=== PATIENT | male | born 1950 | race Caucasian/White ===

== ENCOUNTER 2017-10-28 17:58 | Inpatient (IN) | payer MEDICARE, BC ==
[~2017-10-28 17:58] MED LIST: ASPI81 PO; ATOR20TA42 PO; CARV25TA PO; COZA50TA PO; FEXO180T PO; FOLI1TAB PO; HCTZ50TA PO; KCL20 PO; MONT10TA2 PO; NIFE1TAB86 PO; NITR0.4S SL; OMEP20TA PO; PRAS10TA PO; PRAZ2 PO; VITA50TA PO; ZOLP10TA3 PO
[2017-10-28 18:04] VITALS: BP 182/73; PULSE 47; RESP 20; TEMP 98.4; O2SAT 98
[2017-10-28 18:14] VITALS: BP 141/63; PULSE 52; RESP 17; O2SAT 96
[2017-10-28] MEDS ORDERED: AMLO5TAB2 PO (18:23)
[2017-10-28] MEDS ORDERED: TRAZ100T10 PO (18:23)
[2017-10-28] MEDS ORDERED: PANT20TA2 PO (18:23)
[2017-10-28] MEDS ORDERED: PRAZ2CAP PO (18:23)
[2017-10-28] MEDS ORDERED: OLOP1DRO EACH EYE (18:23)
[2017-10-28] MEDS ORDERED: CLOP75TA PO (18:23)
[2017-10-28] MEDS ORDERED: XOLA150S SQ (18:23)
[2017-10-28] MEDS ORDERED: RANI150T PO (18:23)
[2017-10-28] MEDS ORDERED: LEFL1TAB3 PO (18:23)
[2017-10-28] MEDS ORDERED: CIAL5TAB PO (18:23)
[2017-10-28] MEDS ORDERED: FLUT50SP EACH NARE (18:23)
[2017-10-28] MEDS ORDERED: VALS320T6 PO (18:23)
[2017-10-28] MEDS ORDERED: ROSU1TAB4 PO (18:23)
[2017-10-28 18:39] VITALS: O2SAT 98
[2017-10-28] MEDS ORDERED: SODIUM CHLORIDE 0.9% FLUSH 10 ML FLUSH IVF PRN (18:45)
--- NOTE | 2017-10-28 18:49 | PD ---
HPI Chief Complaint: Cardiac Complaint Time Seen by Provider: 18:07 Travel History International Travel<30 days: No Contact w/Intl Traveler<30days: No Traveled to known affect area: No History of Present Illness HPI The patient is a 67-year-old male who presents to the emergency department from his vp scientific affairs's office, Dr. Anthony Gu, for admission for third-degree heart block. The patient is a 3-4 month history of increasing fatigue, exertional shortness of breath, and near syncope. The patient feels like there is a "lead vest "when he is doing anything exertional. The patient was seen in the vp scientific affairs's office earlier today and had an EKG which reveals a complete third-degree heart block. The patient does have a history of CAD with previous stent placement by his previous vp scientific affairs. The patient' s primary physician is located in [place], [place]. The patient was sent directly from the vp scientific affairs office for admission to the medical service, n.p.o. after midnight, pacemaker placement tomorrow. Upon arrival he is currently asymptomatic at rest. He denies any new chest pain, shortness, no nausea, vomiting, or abdominal pain. PFSH Past Medical History Arthritis: Yes Asthma: No Autoimmune Disease: No Blood Disorders: No Anxiety: No Depression: No Heart Rhythm Problems: No Cancer: No Cardiovascular Problems: Yes High Cholesterol: Yes Chemotherapy: No Chest Pain: No Congestive Heart Failure: No COPD: Yes Cerebrovascular Accident: No Diabetes: No Diminished Hearing: No Endocrine: No Gastrointestinal Disorders: No GERD: Yes Glaucoma: No Genitourinary: No Headaches: Yes Hepatitis: No Hiatal Hernia: No Hypertension: Yes Immune Disorder: No Kidney Stones: No Medical other: Yes (ARTHRITIS SHOULDERS) Musculoskeletal: Yes Neurologic: No Psychiatric: No Reproductive: No Respiratory: No (SLEEP APNEA) Integumentary: No Migraines: No Myocardial Infarction: No Radiation Therapy: No Renal Failure: No Seizures: No Sickle Cell Disease: No Sleep Apnea: Yes Thyroid Disease: No Ulcer: No Tetanus Vaccination: Unknown Influenza Vaccination: Yes ?: Not Past Surgical History Abdominal Surgery: Yes AICD: No Appendectomy: Yes (1998) Arteriovenous Shunt: No Cardiac Surgery: No Cholecystectomy: No Ear Surgery: No Endocrine Surgery: No Eye Surgery: No Genitourinary Surgery: No Gynecologic Surgery: No Insulin Pump: No Joint Replacement: No Oral Surgery: Yes (SINUS SX 2009) Pacemaker: No Thoracic Surgery: No Other Surgery: Yes Social History Alcohol Use: No (occ) Tobacco Use: No Substance Use: No Allergies-Medications (Allergen,Severity, Reaction): Coded Allergies: iodine (Unverified Allergy, Severe, 10/28/17) oyster extract (Unverified Allergy, Severe, 10/28/17) potassium iodide (Unverified Allergy, Severe, 10/28/17) povidone-iodine (Unverified Allergy, Severe, 10/28/17) sodium iodide (Unverified Allergy, Severe, 10/28/17) sodium iodide (Unverified Allergy, Severe, 10/28/17) tramadol (Unverified Allergy, Severe, 10/28/17) Mmaaizz-Nyw-Owr Reductase Inhibitor (Verified Allergy, Intermediate, hives , 10/28/17) Uncoded Allergies: BETA BLOCKERS (Adverse Reaction, Severe, Hypotension, 10/28/17) Reported Meds & Prescriptions Reported Meds & Active Scripts Active Reported Cialis (Tadalafil) 5 Mg Tab 5 Mg PO DAILY Do not exceed 1 dose/day. Trazodone (Trazodone HCl) 100 Mg Tablet 100 Mg PO HS Xolair Inj (Omalizumab) 150 Mg Vial 150 Mg SQ ONCE Valsartan-Hydrochlorothiazide 320-25 Mg Tab 1 Tab PO DAILY Rosuvastatin (Rosuvastatin Calcium) 5 Mg Tab 5 Mg PO DAILY Ranitidine (Ranitidine HCl) 150 Mg Tab 150 Mg PO BID Prazosin (Prazosin HCl) 2 Mg Cap 2 Mg PO BID [place]o Opth 0.7% (Olopatadine HCl) 0.7 % Drops 1 Drop EACH EYE DAILY Pantoprazole (Pantoprazole Sodium) 20 Mg Tab 20 Mg PO DAILY Leflunomide 20 Mg Tab 20 Mg PO DAILY Fluticasone Nasal [place] 50 Mcg/Act Naspr 50 Mcg EACH NARE BID 50 mcg/spray Clopidogrel (Clopidogrel Bisulfate) 75 Mg Tab 75 Mg PO DAILY Amlodipine (Amlodipine Besylate) 5 Mg Tab 5 Mg PO DAILY Review of Systems Except as stated in HPI: all other systems reviewed are Neg General / Constitutional: No: Fever HENT: Positive: Lightheadedness Cardiovascular: Positive: Syncope, Dyspnea on exertion, Other (Third-degree heart block) Gastrointestinal: No: Nausea, Vomiting, Abdominal Pain Musculoskeletal: Positive: Weakness Neurologic: Positive: Dizziness Physical Exam Narrative GENERAL: Awake, alert, pleasant 67-year-old male who appears his stated age and is in no acute respiratory distress. SKIN: Focused skin assessment warm/dry. HEAD: Atraumatic. Normocephalic. EYES: No injection or drainage. ENT: No nasal bleeding or discharge. Mucous membranes pink and moist. NECK: Trachea midline. No JVD. CARDIOVASCULAR: Regular, bradycardic with a heart rate in the 40s. RESPIRATORY: No accessory muscle use. Clear to auscultation. Breath sounds equal bilaterally. GASTROINTESTINAL: Abdomen soft, non-tender, nondistended. No rebound tenderness. MUSCULOSKELETAL: No obvious deformities. No clubbing. No cyanosis. No edema. NEUROLOGICAL: Awake and alert. No obvious cranial nerve deficits. Motor grossly within normal limits. Normal speech. Nonfocal. PSYCHIATRIC: Appropriate mood and affect; insight and judgment normal. Data Data Last Documented VS Vital Signs Date Time Temp Pulse Resp B/P (MAP) Pulse Ox O2 Delivery O2 Flow Rate FiO2 10/28/17 18:39 98 Room Air 10/28/17 18:14 52 17 10/28/17 18:04 98.4 Orders Orders Basic Metabolic Panel (Bmp) (10/28/17 18:36) Complete Blood Count With Diff (10/28/17 18:36) Magnesium (Mg) (10/28/17 18:36) Prothrombin Time / Inr (Pt) (10/28/17 18:36) Act Partial Throm Time (Ptt) (10/28/17 18:36) Ecg Monitoring (10/28/17 18:36) Iv Access Insert/Monitor (10/28/17 18:36) Oximetry (10/28/17 18:36) Oxygen Administration (10/28/17 18:36) Sodium Chloride 0.9% Flush (Ns Flush) (10/28/17 18:45) Chest, Pa & Lat (10/28/17 18:36) Admit Order (Ed Use Only) (10/28/17 18:49) Consult Cardiology (10/28/17 ) Admit To Inpatient (10/28/17 ) Vital Signs (Adult) Q4H (10/28/17 18:51) Activity Oob With Assistance (10/28/17 18:51) Cloth Examiner / Telemetry .CONTINUOUS (10/28/17 18:51) Sodium Chloride 0.9% Flush (Ns Flush) (10/28/17 19:00) Sodium Chloride 0.9% Flush (Ns Flush) (10/28/17 21:00) Naloxone Inj (Narcan Inj) (10/28/17 19:00) Inpatient Certification (10/28/17 ) ^ Other Nursing Orders (10/28/17 18:51) Labs Laboratory Tests Test 10/28/17 18:40 White Blood Count 7.3 TH/MM3 Red Blood Count 4.40 MIL/MM3 Hemoglobin 13.1 GM/DL Hematocrit 38.3 % Mean Corpuscular Volume 87.1 FL Mean Corpuscular Hemoglobin 29.8 PG Mean Corpuscular Hemoglobin Concent 34.2 % Red Cell Distribution Width 13.4 % Platelet Count 240 TH/MM3 Mean Platelet Volume 9.5 FL Neutrophils (%) (Auto) 51.9 % Lymphocytes (%) (Auto) 29.1 % Monocytes (%) (Auto) 17.0 % Eosinophils (%) (Auto) 1.3 % Basophils (%) (Auto) 0.7 % Neutrophils # (Auto) 3.8 TH/MM3 Lymphocytes # (Auto) 2.1 TH/MM3 Monocytes # (Auto) 1.2 TH/MM3 Eosinophils # (Auto) 0.1 TH/MM3 Basophils # (Auto) 0.1 TH/MM3 CBC Comment DIFF FINAL Differential Comment Prothrombin Time 10.9 SEC Prothromb Time International Ratio 1.1 RATIO Activated Partial Thromboplast Time 32.2 SEC Blood Urea Nitrogen 24 MG/DL Creatinine 1.14 MG/DL Random Glucose 88 MG/DL Calcium Level 8.6 MG/DL Magnesium Level 1.8 MG/DL Sodium Level 137 MEQ/L Potassium Level 3.3 MEQ/L Chloride Level 106 MEQ/L Carbon Dioxide Level 20.2 MEQ/L Anion Gap 11 MEQ/L Estimat Glomerular Filtration Rate 64 ML/MIN MDM Medical Decision Making Medical Screen Exam Complete: Yes Emergency Medical Condition: Yes Medical Record Reviewed: Yes Interpretation(s) EKG reveals third-degree heart block with a ventricular rate of 46. Nonspecific ST depression. Last Impressions Chest X-Ray 10/28/17 1702 Signed Impressions: Service Date/Time: Saturday, October 28, 2017 19:02 - CONCLUSION: 1. Extensive pleural and parenchymal scarring on the left side. No acute findings. London Brito MD Laboratory Tests Test 10/28/17 18:40 White Blood Count 7.3 TH/MM3 Red Blood Count 4.40 MIL/MM3 Hemoglobin 13.1 GM/DL Hematocrit 38.3 % Mean Corpuscular Volume 87.1 FL Mean Corpuscular Hemoglobin 29.8 PG Mean Corpuscular Hemoglobin Concent 34.2 % Red Cell Distribution Width 13.4 % Platelet Count 240 TH/MM3 Mean Platelet Volume 9.5 FL Neutrophils (%) (Auto) 51.9 % Lymphocytes (%) (Auto) 29.1 % Monocytes (%) (Auto) 17.0 % Eosinophils (%) (Auto) 1.3 % Basophils (%) (Auto) 0.7 % Neutrophils # (Auto) 3.8 TH/MM3 Lymphocytes # (Auto) 2.1 TH/MM3 Monocytes # (Auto) 1.2 TH/MM3 Eosinophils # (Auto) 0.1 TH/MM3 Basophils # (Auto) 0.1 TH/MM3 CBC Comment DIFF FINAL Differential Comment Prothrombin Time 10.9 SEC Prothromb Time International Ratio 1.1 RATIO Activated Partial Thromboplast Time 32.2 SEC Blood Urea Nitrogen 24 MG/DL Creatinine 1.14 MG/DL Random Glucose 88 MG/DL Calcium Level 8.6 MG/DL Magnesium Level 1.8 MG/DL Sodium Level 137 MEQ/L Potassium Level 3.3 MEQ/L Chloride Level 106 MEQ/L Carbon Dioxide Level 20.2 MEQ/L Anion Gap 11 MEQ/L Estimat Glomerular Filtration Rate 64 ML/MIN Differential Diagnosis Differential diagnosis includes third-degree heart block, arrhythmia, cardiomyopathy, aortic stenosis, deconditioning, ACS. Narrative Course IV was established, labs are drawn and sent, and the patient was placed on cardiac telemetry monitoring and continuous pulse oximetry monitoring. EKG was ordered and interpreted. Chest x-ray was obtained. I discussed the patient with Dr. Anthony Gu who agrees with admission to the medical service and n.p.o. after midnight. We will hold the Plavix. The patient will be admitted to the medical service. The patient will be admitted to a cardiac telemetry unit. Patient is comfortable with this plan of care. Physician Communication Physician Communication The on-call medical service was paged for admission. I discussed the patient with Dr. Bowens who agrees with admission. Diagnosis Primary Impression: Third degree heart block Additional Impression: Near syncope Admitting Information Admitting Physician Requests: Admit Condition: Stable Azam Quintero MD Oct 28, 2017 18:49
[2017-10-28] MEDS ORDERED: NALOXONE HCL 0.4 MG/ML AMP IV PUSH PRN (19:00)
[2017-10-28] MEDS ORDERED: SODIUM CHLORIDE 0.9% FLUSH 10 ML FLUSH IV FLUSH PRN (19:00)
[2017-10-28] MEDS ORDERED: SODIUM CHLOR 0.9% 1000 ML INJ 1,000 ML IV SCH (19:11)
[2017-10-28 19:14] LABS: AUTOMATED NEUTROPHIL # 3.8 TH/MM3 (1.8-7.7); BASOPHIL # 0.1 TH/MM3 (0-0.2); BASOPHIL % 0.7 % (0.0-2.0); EOSINOPHIL # 0.1 TH/MM3 (0-0.4); EOSINOPHIL % 1.3 % (0.0-4.0); HEMATOCRIT 38.3 % (39.0-51.0); HEMOGLOBIN 13.1 GM/DL (13.0-17.0); LYMPH % 29.1 % (9.0-44.0); LYMPHOCYTE # 2.1 TH/MM3 (1.0-4.8); MEAN CELL VOLUME 87.1 FL (80.0-100.0); MEAN CORPUSCULAR HEMOGLOBIN 29.8 PG (27.0-34.0); MEAN CORPUSCULAR HGB CONC 34.2 % (32.0-36.0); MEAN PLATELET VOLUME 9.5 FL (7.0-11.0); MONOCYTE # 1.2 TH/MM3 (0-0.9); NEUT % 51.9 % (16.0-70.0); PLATELET COUNT 240 TH/MM3 (150-450); RED CELL DISTRIBUTION WIDTH 13.4 % (11.6-17.2); WHITE BLOOD COUNT 7.3 TH/MM3 (4.0-11.0)
[2017-10-28] MEDS ORDERED: VANCOMYCIN INJ 1,000 MG in SODIUM CHLOR 0.9% 250 ML INJ 250 ML IV SCH (19:15)
[2017-10-28] MEDS ORDERED: ceFAZolin 2 GM PREMIX 100 ML IV SCH (19:15)
[2017-10-28] MEDS ORDERED: CHLORHEXIDINE GLUCONATE 2 % 1 PACK (2 CLOTHS) TOP SCH (19:15)
[2017-10-28] MEDS ORDERED: MUPIROCIN 2% OINT 1 APPLIC/GM SYR NASAL SCH (19:15)
--- NOTE | 2017-10-28 19:33 | RADRPT ---
EXAM DATE/TIME: 10/28/2017 19:02 [facility] COMPARISON: CHEST PA & LAT, October 13, 2011, 11:31. INDICATIONS : Patient presents with chest discomfort and history of cardiac stent. MEDICAL HISTORY : Cardiovascular disease. SURGICAL HISTORY : Coronary artery stent. ENCOUNTER: Initial ACUITY: 1 day PAIN SCORE: 5/10 LOCATION: Bilateral mid chest FINDINGS: PA and lateral views of the chest demonstrate a chronic left-sided pleural thickening and parenchymal scarring similar to 2012. Minimal right basilar scarring as well. No new infiltrate or new effusion. Heart size upper limits normal. CONCLUSION: 1. Extensive pleural and parenchymal scarring on the left side. No acute findings. London Brito MD on October 28, 2017 at 19:29 Board Certified Radiologist. This report was verified electronically.
[2017-10-28 19:35] VITALS: BP 129/59; PULSE 43; RESP 16; O2SAT 97
[2017-10-28 19:35] LABS: BICARBONATE 20.2 MEQ/L (21.0-32.0); CALCIUM 8.6 MG/DL (8.5-10.1); CREATININE 1.14 MG/DL (0.60-1.30); MAGNESIUM 1.8 MG/DL (1.5-2.5)
[2017-10-28 19:42] LABS: INTERNATIONAL NORMALIZED RATIO 1.1 RATIO; PROTHROMBIN TIME - PATIENT 10.9 SEC (9.8-11.6)
[2017-10-28] MEDS ORDERED: POTASSIUM CHLORIDE 20 MEQ CONTROLLED RELEASE TAB PO ONE (20:30)
--- NOTE | 2017-10-28 20:32 | HHI.HP ---
[facility] Unknown Admission Diagnosis Third-degree heart block, near syncope Diagnoses: Travel History International Travel<30 Days: No Contact w/Intl Traveler <30 Da: No Traveled to Known Affected Are: No History of Present Illness 67-year-old male with past medical history significant for hypertension, coronary artery disease, hyperlipidemia and peripheral vascular disease presents to the emergency department for the evaluation of dizziness and shortness of breath. The patient reports his symptoms have been going on for approximately one month. He denies any syncopal episodes. He went to see his jackscrew worker, Dr. Gu, who noted a third degree AV block which was new for the patient and sent him to the emergency department for admission and pacemaker placement tomorrow. The patient denies any chest pain. He denies any nausea/vomiting/diarrhea. No abdominal pain. No lateralizing signs/ symptoms. Review of Systems Except as stated in HPI: all other systems reviewed are Neg Past Family Social History Past Medical History Hypertension Coronary disease Hyperlipidemia Peripheral vascular disease Past Surgical History Cardiac catheterization with stent placement 1 in 2009 Left femoral-popliteal bypass Appendectomy Reported Medications Reported Meds & Active Scripts Active Reported Cialis (Tadalafil) 5 Mg Tab 5 Mg PO DAILY Do not exceed 1 dose/day. Trazodone (Trazodone HCl) 100 Mg Tablet 100 Mg PO HS Xolair Inj (Omalizumab) 150 Mg Vial 150 Mg SQ ONCE Valsartan-Hydrochlorothiazide 320-25 Mg Tab 1 Tab PO DAILY Rosuvastatin (Rosuvastatin Calcium) 5 Mg Tab 5 Mg PO DAILY Ranitidine (Ranitidine HCl) 150 Mg Tab 150 Mg PO BID Prazosin (Prazosin HCl) 2 Mg Cap 2 Mg PO BID Pazeo Opth 0.7% (Olopatadine HCl) 0.7 % Drops 1 Drop EACH EYE DAILY Pantoprazole (Pantoprazole Sodium) 20 Mg Tab 20 Mg PO DAILY Leflunomide 20 Mg Tab 20 Mg PO DAILY Fluticasone Nasal [place] 50 Mcg/Act Naspr 50 Mcg EACH NARE BID 50 mcg/spray Clopidogrel (Clopidogrel Bisulfate) 75 Mg Tab 75 Mg PO DAILY Amlodipine (Amlodipine Besylate) 5 Mg Tab 5 Mg PO DAILY Allergies: Coded Allergies: iodine (Unverified Allergy, Severe, 10/28/17) oyster extract (Unverified Allergy, Severe, 10/28/17) potassium iodide (Unverified Allergy, Severe, 10/28/17) povidone-iodine (Unverified Allergy, Severe, 10/28/17) sodium iodide (Unverified Allergy, Severe, 10/28/17) sodium iodide (Unverified Allergy, Severe, 10/28/17) tramadol (Unverified Allergy, Severe, 10/28/17) Yxytprj-Tzd-Tuf Reductase Inhibitor (Verified Allergy, Intermediate, hives , 10/28/17) Uncoded Allergies: BETA BLOCKERS (Adverse Reaction, Severe, Hypotension, 10/28/17) Family History Father with CAD Social History Quit tobacco 1-1/2 years ago. Occasional alcohol. Denies illicit drugs. Physical Exam Vital Signs Vital Signs Date Time Temp Pulse Resp B/P (MAP) Pulse Ox O2 Delivery O2 Flow Rate FiO2 10/28/17 19:35 43 16 129/59 (82) 97 Room Air 10/28/17 19:34 97 Room Air 10/28/17 18:39 98 Room Air 10/28/17 18:14 52 17 141/63 (89) 96 Room Air 10/28/17 18:09 16 97 10/28/17 18:04 98.4 47 20 182/73 (109) 98 Physical Exam GENERAL: male lying in bed SKIN: No rashes, ecchymoses or lesions. Cool and dry. HEAD: Atraumatic. Normocephalic. No temporal or scalp tenderness. EYES: Pupils equal round and reactive. Extraocular motions intact. No scleral icterus. No injection or drainage. ENT: Nose without bleeding, purulent drainage or septal hematoma. Throat without erythema, tonsillar hypertrophy or exudate. Uvula midline. Airway patent. NECK: Trachea midline. No JVD or lymphadenopathy. Supple, nontender, no meningeal signs. CARDIOVASCULAR: Regular rate and rhythm without murmurs, gallops, or rubs. RESPIRATORY: Clear to auscultation. Breath sounds equal bilaterally. No wheezes , rales, or rhonchi. GASTROINTESTINAL: Abdomen soft, non-tender, nondistended. No hepato-splenomegaly , or palpable masses. No guarding. MUSCULOSKELETAL: Extremities without clubbing, cyanosis, or edema. No joint tenderness, effusion, or edema noted. No calf tenderness. NEUROLOGICAL: Awake and alert. Cranial nerves II through XII intact. Motor and sensory grossly within normal limits. Normal speech. Laboratory Laboratory Tests Test 10/28/17 18:40 White Blood Count 7.3 Red Blood Count 4.40 Hemoglobin 13.1 Hematocrit 38.3 Mean Corpuscular Volume 87.1 Mean Corpuscular Hemoglobin 29.8 Mean Corpuscular Hemoglobin Concent 34.2 Red Cell Distribution Width 13.4 Platelet Count 240 Mean Platelet Volume 9.5 Neutrophils (%) (Auto) 51.9 Lymphocytes (%) (Auto) 29.1 Monocytes (%) (Auto) 17.0 Eosinophils (%) (Auto) 1.3 Basophils (%) (Auto) 0.7 Neutrophils # (Auto) 3.8 Lymphocytes # (Auto) 2.1 Monocytes # (Auto) 1.2 Eosinophils # (Auto) 0.1 Basophils # (Auto) 0.1 CBC Comment DIFF FINAL Differential Comment Prothrombin Time 10.9 Prothromb Time International Ratio 1.1 Activated Partial Thromboplast Time 32.2 Blood Urea Nitrogen 24 Creatinine 1.14 Random Glucose 88 Calcium Level 8.6 Magnesium Level 1.8 Sodium Level 137 Potassium Level 3.3 Chloride Level 106 Carbon Dioxide Level 20.2 Anion Gap 11 Estimat Glomerular Filtration Rate 64 Result Diagram: 10/28/17183910/28/171839 Caprini VTE Risk Assessment Caprini VTE Risk Assessment: Mod/High Risk (score >= 2) Caprini Risk Assessment Model Point Value = 1 Point Value = 2 Point Value = 3 Point Value = 5 Age 41-60 Minor surgery BMI > 25 kg/m2 Swollen legs Varicose veins or History of unexplained or recurrent spontaneous Oral contraceptives or hormone replacement Sepsis (< 1 month) Serious lung disease, including pneumonia (< 1 month) Abnormal pulmonary function Acute myocardial infarction Congestive heart failure (< 1 month) History of inflammatory bowel disease Medical patient at bed rest Age 61-74 Arthroscopic surgery Major open surgery (> 45 min) Laparoscopic surgery (> 45 min) Malignancy Confined to bed (> 72 hours) Immobilizing plaster cast Central venous access Age >= 75 History of VTE Family history of VTE Factor V Leiden Prothrombin [id number] Lupus anticoagulant Anticardiolipin antibodies Elevated serum homocysteine Heparin-induced thrombocytopenia Other congenital or acquired thrombophilia Stroke (< 1 month) Elective arthroplasty Hip, pelvis, or leg fracture Acute spinal cord injury (< 1 month) Prophylaxis Regimen Total Risk Factor Score Risk Level Prophylaxis Regimen 0-1 Low Early ambulation 2 Moderate Order ONE of the following: *Sequential Compression Device (SCD) *Heparin 5000 units SQ BID 3-4 Higher Order ONE of the following medications: *Heparin 5000 units SQ TID *Enoxaparin/Lovenox 40 mg SQ daily (WT < 150 kg, CrCl > 30 mL/min) *Enoxaparin/Lovenox 30 mg SQ daily (WT < 150 kg, CrCl > 10-29 mL/min) *Enoxaparin/Lovenox 30 mg SQ BID (WT < 150 kg, CrCl > 30 mL/min) AND/OR *Sequential Compression Device (SCD) 5 or more Highest Order ONE of the following medications: *Heparin 5000 units SQ TID (Preferred with Epidurals) *Enoxaparin/Lovenox 40 mg SQ daily (WT < 150 kg, CrCl > 30 mL/min) *Enoxaparin/Lovenox 30 mg SQ daily (WT < 150 kg, CrCl > 10-29 mL/min) *Enoxaparin/Lovenox 30 mg SQ BID (WT < 150 kg, CrCl > 30 mL/min) AND *Sequential Compression Device (SCD) Assessment and Plan Assessment and Plan Assessment/plan: 1. Third-degree AV block EKG shows third-degree AV block, personally reviewed Cardiology consulted, appreciate recommendations Anticipate pacemaker placement tomorrow Telemetry 2. Hypertension/hyperlipidemia Continue home medications 3. CAD/PVD Holding home Plavix in anticipation for procedure tomorrow 4. Hypokalemia Status post by mouth supplementation Follow-up BMP FEN NPO Electrolytes: As above NS at 100 cc/hr Holding pharmacologic anticoagulation in anticipation of pacemaker placement Physician Certification 2 Midnight Certification Type: Admission for Inpatient Services Order for Inpatient Services The services are ordered in accordance with Medicare regulations or non- Medicare payer requirements, as applicable. In the case of services not specified as inpatient-only, they are appropriately provided as inpatient services in accordance with the 2-midnight benchmark. Estimated LOS (days): 2 2 days is the estimated time the patient will need to remain in the hospital, assuming treatment plan goals are met and no additional complications. Post-Hospital Plan: Not yet determined Kim Cerrato MD Oct 28, 2017 20:32
[2017-10-28 22:35] VITALS: BP 111/53; PULSE 42; RESP 19; O2SAT 96
[2017-10-28] MEDS: SODIUM CHLORIDE 0.9% FLUSH 10 ML FLUSH IV FLUSH SCH (23:57)
[2017-10-28] MEDS: traZODone HCL 100 MG TAB PO SCH (23:57)
[2017-10-28] MEDS: PRAZOSIN HCL 2 MG CAP PO SCH (23:58)
[2017-10-29] VITALS (17 sets, daily range): BP systolic 115–154; BP diastolic 58–74; PULSE 36–89; RESP 16–20; TEMP 97.6–98.6; O2SAT 96–99
[2017-10-29] MEDS: SODIUM CHLOR 0.9% 1000 ML INJ 1,000 ML IV SCH ×3 (06:45→16:45)
[2017-10-29] MEDS ORDERED: ATORVASTATIN 10 MG TAB PO SCH (09:00)
[2017-10-29] MEDS ORDERED: PANTOPRAZOLE SOD 20 MG DELAYED RELEASE TAB PO SCH (09:00)
[2017-10-29] MEDS: SODIUM CHLORIDE 0.9% FLUSH 10 ML FLUSH IV FLUSH SCH ×2 (09:00→21:00)
[2017-10-29] MEDS ORDERED: HYDROCHLOROTHIAZIDE 25 MG TAB PO SCH (09:00)
[2017-10-29] MEDS ORDERED: VALSARTAN 160 MG TAB PO SCH (09:00)
[2017-10-29] MEDS ORDERED: amLODIPine BESYLATE 5 MG TAB PO SCH (09:00)
[2017-10-29] MEDS ORDERED: VANCOMYCIN 500 MG VIAL ONE (09:02)
[2017-10-29] MEDS ORDERED: LIDOCAINE HCL 2% 50 ML VIAL ONE (09:02)
[2017-10-29] MEDS ORDERED: VANCOMYCIN HCL 1000 MG VIAL ONE (09:08)
[2017-10-29] MEDS ORDERED: ceFAZolin INJ 1,000 MG VIAL ONE (09:09)
[2017-10-29] MEDS ORDERED: SODIUM CHLOR 0.9% 250 ML INJ 250 ML ONE (09:09)
[2017-10-29] MEDS ORDERED: MIDAZOLAM HCL 2 MG/2 ML VIAL ONE (09:09)
[2017-10-29] MEDS ORDERED: diphenhydrAMINE HCL 50 MG/ML VIAL ONE (09:40)
[2017-10-29] MEDS ORDERED: BACITRACIN OINT 0.9 GM PKT TOP PRN (11:00)
[2017-10-29] MEDS ORDERED: SODIUM CHLORIDE 0.9% FLUSH 10 ML FLUSH IV FLUSH PRN (11:00)
[2017-10-29] MEDS ORDERED: ACETAMINOPHEN 325 MG TAB PO PRN (11:00)
--- NOTE | 2017-10-29 11:20 | MP ---
cc: Anthony Gu MD DATE OF OPERATION: 10/29/2017 PREOPERATIVE DIAGNOSIS: Complete heart block. POSTOPERATIVE DIAGNOSIS: Complete heart block. PROCEDURE PERFORMED: Insertion of dual-chamber rate responsive pacemaker via the left subclavian vein. FINDINGS: Very difficult left subclavian access despite multiple attempts. Access was not easily achievable and a suspected pneumothorax resulted. Dr. Marks from Anesthesia assisted in the case, eventually achieving subclavian access for the case. DESCRIPTION OF THE PROCEDURE: The patient was brought to the cardiac catheterization lab in fasting state. The upper chest was prepped and draped in sterile fashion. Using 1% lidocaine for local anesthesia, an incision was made parallel to and below the left clavicle using Bovie for hemostasis. A pocket was fashioned above the pectoralis muscle. Next, I tried to puncture the left subclavian vein with a Cook needle. After several attempts, intravenous contrast was administered via the left brachial vein. Multiple attempts were then made to obtain access unsuccessfully and a second contrast injection for further delineation of the vein. After multiple frustrating attempts, Dr. Marks from Anesthesia was able to come by and assist me and he easily obtained access using a single access. A sheath was placed and 2 wires were inserted to allow insertion of both leads. Over the 1st guidewire, a 7-Georgian peel-away sheath was introduced. Through this, a ventricular lead was inserted and screwed into the right ventricular apex with good sensing and pacing thresholds. Over the 2nd guidewire, a 7-Georgian peel-away sheath was introduced and through this, the atrial lead was inserted and screwed into the right atrial appendage with good sensing and pacing threshold. Both leads were secured to the underlying fascia using three 2-0 silk sutures and the Silastic cuff. The leads were then connected to the pacemaker generator. The generator was then positioned in the floor of the pocket with the leads coiled behind it. The wound was irrigated with antibiotic solution. The wound was then carefully closed in layers using interrupted 2-0 Vicryl sutures for the deep fascial layers, interrupted 3-0 Vicryl sutures for the subcutaneous layers and a running 4-0 Monocryl stitch, followed by Steri-Strips and a 4 x 4 dressing. Note that both leads were tested with 10 volts with no diaphragmatic pacing. During the case, by fluoroscopy, the pleura is thickened creating false illusion of a pneumothorax. IMPLANT INFORMATION: The pacemaker is a Medtronic Advisa DR MRI model A2DR01, serial number [id number]. The atrial lead is a Medtronic model 4076, serial number [id number] with a P-wave of 4.3 millivolts, a threshold of 0.5 volts and impedance 456 ohms. The ventricular lead is Medtronic model 4076, serial number [id number] with an impedance of 627 ohms, a threshold of 0.5 volts and an R-wave during the case of 8.2 volts. The pacemaker was programmed DDDR at a rate of 60-130. ESTIMATED BLOOD LOSS: 10 mL. MD JAQUELINE Meraz/KATIE , 10:57 AM , 11:19 AM SAKSHI
--- NOTE | 2017-10-29 11:44 | CATHPROC ---
Patient Name: BRODERICK ESCOBAR Study #: [id number] Initial MD: Anthony Gu Date of : 1950 Study Date: 10/29/2017 Cardiac Catheterization Report 10/29/2017 11:44:20 AM Financial #: [id number] 1 of 10 Patient Name: BRODERICK ESCOBAR Study #: [id number] Initial MD: Anthony uG Date of : 1950 Study Date: 10/29/2017 Entire Case Report Patient Information Patient Name BRODERICK ESCOBAR Date of 1950 Age 67 years Financial # [id number] Gender M AlternateID Lab Number 6 Room Number 459 Height (in) 67.0 Height (cm) 170.2 BSA 2.18 Weight (lbs) 237.6 Weight (kg) 108.0 Patient Address/Phone Number Home Address [facility] Home Phone Number [phone] [facility] [phone] Study Information Study Number Admission Scheduled Start Study Start [id number] Oct 28 2017 6:52PM 10/28/2017 Oct 29 2017 7:34AM [place] [facility] Cardiac Pacer/ICD Admit Source Facility Department Other [facility] Operator Physician and Clinical Staff Initial Anthony Guallpa Abrasive Coating Machine Operator Rebeca Crowe,FILM VAULT SUPERVISOR TECH2 Abrasive Coating Machine Operator Kasandra Feliciano,PATRICE Other Anesthesia, HEATING ELEMENT BUILDER Recorder Elda Watts RN Scrub Uzma Jones RCIS Procedures Performed Procedure Location (Site) Vessel Name Lead Insertion Venogram Subclav. Vein (Lft Subclavian Vein 10/29/2017 11:44:20 AM Financial #: [id number] 2 of 10 Patient Name: BRODERICK ESCOBAR Study #: [id number] Initial MD: Anthony Gu Date of : 1950 Study Date: 10/29/2017 Equipment Time Discharge Door Operator Description Size Mfg Part Number Used/Scraped INTRODUCER SET, 10:20 [employer] FR 5 [id number] *[id number] Used MICROPUNCTURE STIFF [id number] 07:37 MEDLINE [employer] SUTURE, STRIP PLUS 1/2" * Used *[id number] 07:37 MEDLINE PACER ADHESIVE, MASTISOL 2/3CC 2/3CC 0523-48 Used 07:37 MEDLINE PACER EDWARD, LIMB * 2530 *[id number] Used [id number] 07:37 MEDLINE PACER PACK, PACER CUSTOM * Used *[id number] 07:37 MEDLINE PACER PEN, SKIN DUAL W/ RULER * Used *[id number] 09:17 [employer] PACER SAFE SHEATH, FR7, 13CM FR 7 [id number] Used 09:17 [employer] PACER SAFE SHEATH, FR7, 13CM FR 7 CLS-1007 Used 09:18 Needle Sponge Count 2 22 Used 09:18 Needle Sponge Count 3 3 Used 09:18 Needle Sponge Count 30 1 Used 10:35 Needle Sponge Count 4 4 Used 09:41 [employer] OMNIPAQUE, 300 MG, 50ML 50ML [id number] Used [id number] *[id number] SUTURE, 2-0 VICRYL [SH] ([id number]) SUTURE, 3-0 VICRYL [SH] ([id number]) SUTURE, 4-0 MONOCRYL [PS2] (Y496G) [id number] 07:37 [employer],WARM AIR CCL * Used *[id number] [facility] PAD, ELECTROSURGICAL 07:37 * [id number] *[id number] Used SURGICAL GROUNDING ORANGE LEAD, CAPSURE FIX NOVUS, 4076-52CM 10:13 [employer] 52CM Used 52CM *[id number] LEAD, CAPSURE FIX NOVUS, 4076-58CM 10:09 [employer] 58CM Used 58CM *[id number] PACEMAKER, ADVISA MRI 10:19 [employer] OEA-DDDR A2DR01 Used SURESCAN [id number] 07:37 [employer]GA. / * Used *57644 Equipment Model, Serial, Lot Number and Expiration Data Description Model Number Serial Number Lot Number Expiration Date INTRODUCER SET, [id number] 09-08-2020 MICROPUNCTURE STIFF LEAD, CAPSURE FIX NOVUS, 52CM 4076-52 [id number] 05-13-2019 LEAD, CAPSURE FIX NOVUS, 58CM 4076-58 [id number] 03-19-2018 PACEMAKER, ADVISKelley BERNABE MRI [id number] 12-14-2018 SURESUZY 10/29/2017 11:44:20 AM Financial #: [id number] 3 10 Patient Name: BRODERICK ESCOBAR Study #: [id number] Initial MD: Anthony Gu Date of : 1950 Study Date: 10/29/2017 Insurance Information Insurance Payor Private Health Insurance Third Democrat Third Democrat Number [facility] ACCTS History: Allergies Allergy Reaction Uwtkphi-Xmj-Lvt Reductase hives Inhibitor potassium iodide sodium iodide iodine povidone-iodine tramadol oyster extract BETA BLOCKERS Hypotension History: Risk Factors Hypertension Dyslipidemia Yes Yes Prior PCI Prior PCIDate Yes 07/20/2009 Labs Hgb (g/dl) Hct (%) RBC (MIL/MM3) WBC (l/cumm) Platelets (thousands) 11.60-17.00 35.00-51.00 4.00-5.90 4.00-11.00 150.00-450.00 13.0 38 4.4 7.3 240 Glucose (mg/dl) BUN (mg/dl) Creatinine (mg/dl) BUN:Creatinine (1:x) 74.00-106.00 7.00-18.00 0.50-1.30 10.00-20.00 88 24 1.1 21.8 Na (meq/l) K (meq/l) 136.00-145.00 3.50-5.10 137 3.3 INR (PTT:PT) 0.90-1.10 1.1 10/29/2017 11:44:20 AM Financial #: [id number] Patient Name: BRODERICK ESCOBAR Study #: [id number] Initial MD: Anthony Gu Date of : 1950 Study Date: 10/29/2017 Medication Medication Total Dose (Bolus/Oral) Medication Total Dosage/Unit 2% XYLOCAINE 100 mL Medications (Bolus/Oral) Medication Time Given Dosage/Unit Administered By Reason 2% XYLOCAINE 10/29/2017 9:31:00 AM 50 mL Anthony Gu 50 mL 2% XYLOCAINE given in lab by Anthony Gu in Left upper chest via Subcutaneous. 2% XYLOCAINE 10/29/2017 11:21:28 AM 50 mL 50 mL 2% XYLOCAINE given in lab in Left Lateral Chest via Subcutaneous by Dr Lara Medication (Drip) Medication Time Given Dosage/Unit Concentration/Unit Diluent (ml) Solution ANCEF 10/29/2017 9:20:00 AM 2 g 2 g ANCEF given in lab by Anesthesia, HEATING ELEMENT BUILDER via Peripheral IV. Ordered by Anthony Gu. Reason: As pe r physicians verbal order. VANCOMYCIN DRIP 10/29/2017 9:19:00 AM 1 g 1 g VANCOMYCIN DRIP given in lab by Anesthesia, HEATING ELEMENT BUILDER via Peripheral IV. Ordered by Anthony Gu. Encinal son: As per physicians verbal order. 10/29/2017 11:44:20 AM Financial #: [id number] 5 of 10 Patient Name: BRODERICK ESCOBAR Study #: [id number] Initial MD: Anthony Gu Date of : 1950 Study Date: 10/29/2017 Initial Case Assessment Cardiovascular HR Rhythm NIBP Chest Pain 46 chb 154/70 0 Edema Present Skin color Skin None Normal Warm Dry Circulatory - Right Pulses Radial 1 Scale (0,1,2,3,4,d) Circulatory - Left Pulses Radial 1 Scale (0,1,2,3,4,d) Circulatory - Lower Extremities Color Lower Right Color Lower Left Normal Normal Neurological State Oriented to time-place- Alert Moves all extremities person Respiration - General Respiration Rate SpO2 (%) (B/min) 18 96 10/29/2017 11:44:20 AM Financial #: [id number] 6 of 10 Patient Name: BRODERICK ESCOBAR Study #: [id number] Initial MD: Anthony Gu Date of : 1950 Study Date: 10/29/2017 Final Case Assessment Cardiovascular HR Rhythm NIBP Chest Pain 74 cumulative effects analyst 129/62 0 Edema Present Skin color Skin None Normal Warm Dry Circulatory - Right Pulses Radial 1 Scale (0,1,2,3,4,d) Circulatory - Left Pulses Radial 1 Scale (0,1,2,3,4,d) Circulatory - Lower Extremities Color Lower Right Color Lower Left Normal Normal Neurological State Lethargic Moves all extremities Respiration - General Respiration Rate SpO2 (%) O2 (lpm) (B/min) 16 97 6 Chronological Log Time Study Chronological Log 8:50:00 Patient arrived via Bed. 8:50:06 Disposable Defibrillator Pads Placed On Patient. 8:50:09 A # 18 IV was noted in the Antecubital (left). Grade = 0 0.9ns kvo 8:50:10 A # 20 IV was noted in the Forearm (right). Grade = 0 0.9ns kvo 8:50:10 Patient Name, D.O.B, / Armband Verified By R.N. 8:50:20 Consent signed by the physician and the patient and verified by the [facility] staff. 8:50:42 Verbal Stimulation=2 Physical Stimulation=2 Airway=2 Respiration=2 TOTAL=8. (0=absent, 1=li mited, 2=present) 8:50:45 Patient has been NPO for More than 6Hrs. 8:50:51 Skin Breakdown- none per pt 10/29/2017 11:44:20 AM Financial #: [id number] Patient Name: BRODERICK ESCOBAR Study #: [id number] Initial MD: Anthony Gu Date of : 1950 Study Date: 10/29/2017 8:51:00 Pre-op and post- op instructions given; patient acknowledges understanding of instructions. 8:51:01 Patient Warmer Placed on the Table. 8:51:13 Brandy Prominences Protected 8:58:57 Reference ECG taken 8:59:00 Anesthesia at bedside. Assumes care of patient. Gokul Assessment: Initial Case, HR=46 BPM, Rhythm=chb, UOPY=697/70 mmhg, Chest Pain=0, Edema=None, Color=Normal, Skin = Warm, Dry Right Pulses: Radial=1 Left Pulses: Radial=1 8:59:02 Lower Right Extremities: Color=Normal Lower Left Extremities: Color=Normal Neurological: State=Alert, Ox3, SIMON Respiration: Resp=18 B/min, SpO2=96 % 9:00:00 Bovie ground pad applied to: right thigh 9:01:44 Table restraints applied according to hospital policy 9:02:31 History and physical on the chart or being dictated. 9:02:39 Upper Chest Prepped Times Two. 9:03:07 2% CHLORHEXIDINE GLUCONATE WASH AND NASAL SWIPE DONE PRIOR TO PROCEDURE. 9:11:40 Anesthesiologist present First Sponge And Instrument Count Done by Uzma Jones RCIS. 9:12:18 Hypo's: 3, Sponges: 40 sponges, Bovie/scratch: 2 Sutures: 5, Blades: 2, Instruments: 26, Syveck Patches: 0 Verified w SH 1 g VANCOMYCIN DRIP given in lab by Anesthesia, HEATING ELEMENT BUILDER via Peripheral IV. Ordered by Sushila Gu. Reason: As per 9:19:00 physicians verbal order. 2 g ANCEF given in lab by Anesthesia, HEATING ELEMENT BUILDER via Peripheral IV. Ordered by Anthony Gu. Reason: As per physicians 9:20:00 verbal order. 9:25:47 MD arrived. Time Out. Correct patient, procedure, procedure equipment, site and side verified with physicia n present. Time 9:30:00 concurred by MD, individual staff and HEATING ELEMENT BUILDER. Time Out #2 - Consents verified, patient in correct position, all results are labled and displa yed, safety precautions 9:30:16 taken, antibiotics administered. Time out concurred by MD, individual staff and HEATING ELEMENT BUILDER in procedu re 9:30:49 Case Start 9:31:00 50 mL 2% XYLOCAINE given in lab by Anthony Gu in Left upper chest via Subcutaneous. 9:32:19 Surgical Incision Made. 9:37:18 A pocket was created at the L Upper Chest. 9:42:01 The Subclav. Vein (Lft was manually injected with 10 cc's of contrast. OMNIPAQUE, 300 MG, 5 0ML 50ML used. 9:47:00 The Subclav. Vein (Lft was manually injected with 10 cc's of contrast. OMNIPAQUE, 300 MG, 5 0ML 50ML used. 9:56:14 The Subclav. Vein (Lft was manually injected with 10 cc's of contrast. OMNIPAQUE, 300 MG, 5 0ML 50ML used. 10:03:14 Anesthesiologist present to assist w access. 10:05:02 Vascular access was obtained in the Subclav. Vein Lft. Dr Marks 10:05:03 Wire inserted 10:06:03 Vascular access was obtained in the Subclav. Vein (Lft. 10/29/2017 11:44:20 AM Financial #: [id number] 8 of 10 Patient Name: BRODERICK ESCOBAR Study #: [id number] Initial MD: Anthony Gu Date of : 1950 Study Date: 10/29/2017 10:06:08 Wire inserted 10:07:57 A SAFE SHEATH, FR7, 13CM FR 7 was advanced into the Subclav. Vein (Lft using the Cutdown te chnique. 10:08:12 A LEAD, CAPSURE FIX NOVUS, 58CM 58CM was inserted and positioned in the RV. 10:09:39 Lead placement verified under fluoroscopy 10:10:53 The RV lead impedance and threshold being tested. 10:14:07 The RV lead was sutured to the fascia. 10:14:12 A SAFE SHEATH, FR7, 13CM FR 7 was advanced into the Subclav. Vein (Lft using the Modified S eldinger technique. 10:14:23 A LEAD, CAPSURE FIX NOVUS, 52CM 52CM was inserted and positioned in the RA. 10:16:23 Lead placement verified under fluoroscopy 10:16:25 The Atrial lead impedance and threshold is being tested. 10:16:48 The Atrial lead was sutured to the fascia. 10:27:15 A PACEMAKER, RONDA HOLDENAN OEA-DDDR was connected and placed in the pocket. 10:30:00 Pocket flushed with antibiotic solution Second Sponge And Instrument Count Done by Uzma Jones RCIS. 10:32:40 Hypo's: 4, Sponges: 40 sponges, Bovie/scratch: 2 Sutures: 5, Blades: 2, Instruments: 26, Syveck Patches: 0 Verified w SH 10:39:[address] Gu's request. Spoke fabian Sabillon. Will call before head to IR. 10:47:05 The pocket was closed. Final Sponge And Instrument Count Done by Uzma Jones RCIS. 10:48:21 Hypo's: 4, Sponges: 40 sponges, Bovie/scratch: 2 Sutures: 5, Blades: 2, Instruments: 26, Syveck Patches: 0 Verified w SH 10:49:18 Implant Procedure was performed. 10:58:06 A PPM Implant . (Dual) Spoke fabian Abad from IR et per Dr Gu's request asked if IR Could do CT placement in EP L ab. IR staff et Dr Lara 10:58:50 will come do procedure in EP Lab. 10:59:18 Steri-strips and a sterile dressing applied to site. 10:59:27 PACU called. Spoke to Starr 10:59:40 Bedside Report will be given. 11:02:24 Dr Gu went to speak w in waiting room et obtain consent for Chest Tube placement. 11:06:32 Anesthesia remains at bedside. Assuming care of patient. 11:13:08 Dr Lara et IR team present to insert CT. Consent obtained from . 11:14:35 Pt examined under fluoro, site signed and prepped for procedure by Dr Lara. 11:14:53 Left Lateral Upper Chest Prepped Times Two. Time Out. Correct patient, procedure, procedure equipment, site and side verified with physicia n present. Time 11:18:11 concurred by MD, individual staff and HEATING ELEMENT BUILDER. Time Out #2 - Consents verified, patient in correct position, all results are labled and displa yed, safety precautions 11:18:35 taken, antibiotics administered. Time out concurred by MD, individual staff and HEATING ELEMENT BUILDER in procedu re 11:18:55 Case Start 11:21:28 50 mL 2% XYLOCAINE given in lab in Left Lateral Chest via Subcutaneous by Dr Lara 11:23:19 Needle placement guided under fluoroscopy. 11:25:36 Wire inserted 10/29/2017 11:44:20 AM Financial #: [id number] Patient Name: BRODERICK ESCOBAR Study #: [id number] Initial MD: Anthony Gu Date of : 1950 Study Date: 10/29/2017 11:34:43 Wedge placed under pt right side. 11:35:15 Entire procedure done by Dr Lara using fluoro. Yet unable to place CT. 11:40:51 Steri-strips and a sterile dressing applied to site. 11:41:18 PACU called. Spoke to Starr. 11:41:48 Bedside Report will be given. 11:42:00 Case End 11:42:26 Cine recording checked. 11:42:30 Defibrillator and ground pads removed. Skin intact. Assessment: Final Case, HR=74 BPM, Rhythm=cumulative effects analyst, MRVK=330/62 mmhg, Chest Pain=0, Edema=None, Col or=Normal, Skin = Warm, Dry Right Pulses: Radial=1 Left Pulses: Radial=1 11:42:43 Lower Right Extremities: Color=Normal Lower Left Extremities: Color=Normal Neurological: State=Lethargic, SIMON Respiration: Resp=16 B/min, SpO2=97 %, O2=6 lpm 11:43:34 Implantable Device card placed in patient's chart. 11:43:38 A sling was placed on the affected arm. End Study - Contrast Media Used In Study Contrast Total Opened (mL) Total Used (mL) Total Wasted (mL) Omnipaque 50 30 20 End Study - Maximum Contrast Load Max Contrast Load (mL) 490.9 End Study - Radiation Exposure Fluoro Time (minutes) 16.4 End Study - Patient Disposition Complications Transferred To Interventional Outcome No Telemetry Bed successful 10/29/2017 11:44:20 AM Financial #: [id number]
[2017-10-29] MEDS ORDERED: oxyCODONE/ACETAMINOPHEN 5 MG/325 MG TAB PO PRN (12:00)
[2017-10-29] MEDS ORDERED: ePHEDrine/NS 25 MG/5 ML SYRINGE IV ONE (12:00)
[2017-10-29] MEDS ORDERED: ONDANSETRON HCL 4 MG/2 ML VIAL IV ONE (12:00)
[2017-10-29] MEDS ORDERED: DEXAMETHASONE SOD PHOS 4 MG/ML VIAL IV ONE (12:00)
[2017-10-29] MEDS ORDERED: PROPOFOL 200 MG/20 ML AMP IV ONE (12:00)
[2017-10-29] MEDS ORDERED: LIDOCAINE HCL 1% PF 5 ML SYRINGE OTHER ONE (12:00)
[2017-10-29] MEDS ORDERED: DO NOT ADM ANY ANTICOAGULANT DRUGS PRN (12:30)
--- NOTE | 2017-10-29 13:11 | RADRPT ---
EXAM DATE/TIME: 10/29/2017 12:42 [place] COMPARISON: CHEST PA & LAT, October 13, 2011, 11:31. CHEST PA & LAT, October 28, 2017, 19:02. INDICATIONS : Pneumothorax MEDICAL HISTORY : Cardiovascular disease. SURGICAL HISTORY : Hypertension ENCOUNTER: Subsequent ACUITY: 4 - 6 days PAIN SCORE: 0/10 LOCATION: Left chest FINDINGS: Portable upright expiratory view of the chest demonstrates a normal-sized cardiac silhouette. Left ch est wall cardiac pacing device is present. No pneumothorax is visualized. There is a chronic pleural- based opacity on the left. There is stable linear scar in the left upper lung zone. No pleural effusi on or consolidation is seen. Bones demonstrate no acute finding. CONCLUSION: 1. No pneumothorax is visualized. 2. Chronic left pleural thickening is stable. Shankar Velasquez MD on October 29, 2017 at 13:05 Board Certified Radiologist. This report was verified electronically.
--- NOTE | 2017-10-29 13:21 | HHI.PR ---
Subjective Remarks 67-year-old male with past medical history significant for hypertension, coronary artery disease, hyperlipidemia and peripheral vascular disease presents to the emergency department for the evaluation of dizziness and shortness of breath. The patient reports his symptoms have been going on for approximately one month. He denies any syncopal episodes. He went to see his measurement and sensing technician, Dr. Gu, who noted a third degree AV block which was new for the patient and sent him to the emergency department for admission and pacemaker placement tomorrow. The patient denies any chest pain. He denies any nausea/vomiting/diarrhea. No abdominal pain. No lateralizing signs/ symptoms. 4-12 SP PPM INSERTION AND SMALL PTX DW RN AND PT AND FAMILY CONTINUE OXYGEN INCENTIVE SPIROMETRY CHEST XRAY AND AM LABS Objective Vitals Vital Signs Date Time Temp Pulse Resp B/P (MAP) Pulse Ox O2 Delivery O2 Flow Rate FiO2 10/29/17 12:45 70 16 125/61 (82) 98 Nasal Cannula 2 10/29/17 12:30 68 16 131/61 (84) 98 Nasal Cannula 2 10/29/17 12:15 68 16 136/63 (87) 98 Nasal Cannula 2 10/29/17 12:00 70 16 137/64 (88) 98 Nasal Cannula 2 10/29/17 11:58 98.4 70 16 136/63 (87) 99 Nasal Cannula 2 10/29/17 07:45 98.6 40 20 115/60 (78) 98 10/29/17 07:00 36 10/29/17 03:00 40 10/29/17 02:33 98.6 44 16 124/58 (80) 97 10/29/17 02:00 45 10/29/17 01:47 10/28/17 22:35 42 19 111/53 (72) 96 Room Air 10/28/17 19:35 43 16 129/59 (82) 97 Room Air 10/28/17 19:34 97 Room Air 10/28/17 18:39 98 Room Air 10/28/17 18:14 52 17 141/63 (89) 96 Room Air 10/28/17 18:09 16 97 10/28/17 18:04 98.4 47 20 182/73 (109) 98 I/O 10/28/17 10/28/17 10/28/17 10/29/17 10/29/17 10/29/17 07:00 15:00 23:00 07:00 15:00 23:00 Intake Total 0 ml 20 ml Balance 0 ml 20 ml Intake Oral 0 ml IV Total 20 ml # Voids 2 # Bowel Movements 2 Result Diagram: 10/28/170 10/28/17 1840 Other Results Laboratory Tests Test 10/28/17 18:40 White Blood Count 7.3 TH/MM3 Red Blood Count 4.40 MIL/MM3 Hemoglobin 13.1 GM/DL Hematocrit 38.3 % Mean Corpuscular Volume 87.1 FL Mean Corpuscular Hemoglobin 29.8 PG Mean Corpuscular Hemoglobin Concent 34.2 % Red Cell Distribution Width 13.4 % Platelet Count 240 TH/MM3 Mean Platelet Volume 9.5 FL Neutrophils (%) (Auto) 51.9 % Lymphocytes (%) (Auto) 29.1 % Monocytes (%) (Auto) 17.0 % Eosinophils (%) (Auto) 1.3 % Basophils (%) (Auto) 0.7 % Neutrophils # (Auto) 3.8 TH/MM3 Lymphocytes # (Auto) 2.1 TH/MM3 Monocytes # (Auto) 1.2 TH/MM3 Eosinophils # (Auto) 0.1 TH/MM3 Basophils # (Auto) 0.1 TH/MM3 CBC Comment DIFF FINAL Differential Comment Prothrombin Time 10.9 SEC Prothromb Time International Ratio 1.1 RATIO Activated Partial Thromboplast Time 32.2 SEC Blood Urea Nitrogen 24 MG/DL Creatinine 1.14 MG/DL Random Glucose 88 MG/DL Calcium Level 8.6 MG/DL Magnesium Level 1.8 MG/DL Sodium Level 137 MEQ/L Potassium Level 3.3 MEQ/L Chloride Level 106 MEQ/L Carbon Dioxide Level 20.2 MEQ/L Anion Gap 11 MEQ/L Estimat Glomerular Filtration Rate 64 ML/MIN Imaging Last Impressions Chest X-Ray 10/28/17 1836 Signed Impressions: Service Date/Time: Saturday, October 28, 2017 19:02 - CONCLUSION: 1. Extensive pleural and parenchymal scarring on the left side. No acute findings. London Brito MD Objective Remarks GENERAL: Awake alert and oriented 3 talkative and cooperative SKIN: Warm and dry. HEAD: Atraumatic. Normocephalic. EYES: Pupils equal and round. No scleral icterus. No injection or drainage. extraocular muscles intact ENT: No nasal bleeding or discharge. Mucous membranes pink and moist. Tongue is midline NECK: Trachea midline. No JVD. CARDIOVASCULAR: Regular rate and rhythm. S1-S2 no S3 or S4 RESPIRATORY: No accessory muscle use. Clear to auscultation. Breath sounds equal bilaterally. GASTROINTESTINAL: Abdomen soft, non-tender, nondistended. Hepatic and splenic margins not palpable. MUSCULOSKELETAL: Extremities without clubbing, cyanosis, or edema. No obvious deformities. NEUROLOGICAL: Awake and alert. No obvious cranial nerve deficits. Motor grossly within normal limits. Five out of 5 muscle strength in the arms and legs. Normal speech. PSYCHIATRIC: Appropriate mood and affect; insight and judgment normal. Procedures DATE OF OPERATION: 10/29/2017 PREOPERATIVE DIAGNOSIS: Complete heart block. POSTOPERATIVE DIAGNOSIS: Complete heart block. PROCEDURE PERFORMED: Insertion of dual-chamber rate responsive pacemaker via the left subclavian vein. FINDINGS: Very difficult left subclavian access despite multiple attempts. Access was not easily achievable and a pneumothorax resulted. Dr. Marks from Anesthesia assisted in the case, eventually achieving subclavian access for the case. DESCRIPTION OF THE PROCEDURE: The patient was brought to the cardiac catheterization lab in fasting state. The upper chest was prepped and draped in sterile fashion. Using 1% lidocaine for local anesthesia, an incision was made parallel to and below the left clavicle using Bovie for hemostasis. A pocket was fashioned above the pectoralis muscle. Next, I tried to puncture the left subclavian vein with a Cook needle. After several attempts, intravenous contrast was administered via the left brachial vein. Multiple attempts were then made to obtain access unsuccessfully and a second contrast injection for further delineation of the vein. After multiple frustrating attempts, Dr. Marks from Anesthesia was able to come by and assist me and he easily obtained access using a single access. A sheath was placed and 2 wires were inserted to allow insertion of both leads. Over the 1st guidewire, a 7-Georgian peel-away sheath was introduced. Through this, a ventricular lead was inserted and screwed into the right ventricular apex with good sensing and pacing thresholds. Over the 2nd guidewire, a 7-Georgian peel-away sheath was introduced and through this, the atrial lead was inserted and screwed into the right atrial appendage with good sensing and pacing threshold. Both leads were secured to the underlying fascia using three 2-0 silk sutures and the Silastic cuff. The leads were then connected to the pacemaker generator. The generator was then positioned in the floor of the pocket with the leads coiled behind it. The wound was irrigated with antibiotic solution. The wound was then carefully closed in layers using interrupted 2-0 Vicryl sutures for the deep fascial layers, interrupted 3-0 Vicryl sutures for the subcutaneous layers and a running 4-0 Monocryl stitch, followed by Steri-Strips and a 4 x 4 dressing. Note that both leads were tested with 10 volts with no diaphragmatic pacing. During the case, by fluoroscopy, it was easily discernable that there was a small pneumothorax. Arrangements are being made for the patient to go to interventional radiology for a left-sided chest tube. IMPLANT INFORMATION: The pacemaker is a [employer] MRI model A2DR01, serial number [id number]. The atrial lead is a Medtronic model 4076, serial number [id number] with a P-wave of 4.3 millivolts, a threshold of 0.5 volts and impedance 456 ohms. The ventricular lead is Medtronic model 4076, serial number [id number] with an impedance of 627 ohms, a threshold of 0.5 volts and an R-wave during the case of 8.2 volts. The pacemaker was programmed DDDR at a rate of 60-130. ESTIMATED BLOOD LOSS: 10 mL. Anthony Gu MD Medications and IVs Current Medications Sodium Chloride (NS Flush) 2 ml UNSCH PRN IVF FLUSH AFTER USING IV ACCESS; Start 10/28/17 at 18:45 Sodium Chloride (NS Flush) 2 ml UNSCH PRN IV FLUSH FLUSH AFTER USING IV ACCESS ; Start 10/28/17 at 19:00 Sodium Chloride (NS Flush) 2 ml BID IV FLUSH Last administered on 10/28/17at 23: 57; Start 10/28/17 at 21:00 Naloxone HCl (Narcan Inj) 0.4 mg UNSCH PRN IV PUSH SEE LABEL COMMENTS; Start at 19:00 Sodium Chloride 1,000 ml @ 30 mls/hr Q24H IV ; Start 10/28/17 at 19:11 Cefazolin/Sodium Chloride 100 ml @ 100 mls/hr [employer] IV ; Start 10/28/17 at 19:15; Stop 10/31/17 at 19:14 Vancomycin HCl 1000 mg/Sodium Chloride 250 ml @ 250 mls/hr [employer] IV ; Start 10/28/17 at 19:15; Stop 11/01/17 at 19:14 Mupirocin (Bactroban Nasal 2% Oint) 1 applic [employer] NASAL ; Start 10/28/17 at 19:15; Stop 11/01/17 at 19:14 Chlorhexidine Gluconate (Chlorhexidine 2% Cloth) 3 pack [employer] TOP ; Start 06/06 at 19:15; Stop 11/01/17 at 19:14 Amlodipine Besylate (Norvasc) 5 mg DAILY PO ; Start 10/29/17 at 09:00 Pantoprazole Sodium (Protonix) 20 mg DAILY PO ; Start 10/29/17 at 09:00 Prazosin HCl (Minipress) 2 mg BID PO Last administered on 10/28/17at 23:58; Start 10/28/17 at 21:00 Atorvastatin Calcium (Lipitor) 10 mg DAILY PO ; Start 10/29/17 at 09:00 Trazodone HCl (Desyrel) 100 mg HS PO Last administered on 10/28/17at 23:57; Start 10/28/17 at 21:00 Hydrochlorothiazide (Hydrodiuril) 25 mg DAILY PO ; Start 10/29/17 at 09:00 Potassium Chloride (KCl) 40 meq ONCE ONCE PO Last administered on 10/28/17at 23 :57; Start 10/28/17 at 20:30; Stop 10/28/17 at 22:22; Status DC Sodium Chloride 1,000 ml @ 100 mls/hr Q10H IV Last administered on 10/29/17at 00:00; Start 10/28/17 at 20:45 Valsartan (Diovan) 320 mg DAILY PO ; Start 10/29/17 at 09:00 Lidocaine HCl (Xylocaine 2% Inj) 50 ml STK-MED ONCE .ROUTE Last administered on 10/29/17at 09:02; Start 10/29/17 at 09:02; Stop 10/29/17 at 09:03; Status DC Vancomycin HCl (Vancomycin Inj) 500 mg STK-MED ONCE .ROUTE Last administered on 10/29/17at 09:02; Start 10/29/17 at 09:02; Stop 10/29/17 at 09:03; Status DC Vancomycin HCl (Vancomycin Inj) 1,000 mg STK-MED ONCE .ROUTE Last administered on 10/29/17at 09:19; Start 10/29/17 at 09:08; Stop 10/29/17 at 09:09; Status DC Midazolam HCl (Versed Inj) 2 mg STK-MED ONCE .ROUTE ; Start 10/29/17 at 09:09; Stop 10/29/17 at 09:10; Status DC Fentanyl Citrate (fentaNYL INJ) 100 mcg STK-MED ONCE .ROUTE ; Start 10/29/17 at 09:09; Stop 10/29/17 at 09:10; Status DC Cefazolin Sodium (Ancef Inj) 2,000 mg STK-MED ONCE .ROUTE Last administered on 10/29/17at 09:20; Start 10/29/17 at 09:09; Stop 10/29/17 at 09:10; Status DC Sodium Chloride 250 ml @ As Directed STK-MED ONCE .ROUTE Last administered on 10/29/17at 09:19; Start 10/29/17 at 09:09; Stop 10/29/17 at 09:10; Status DC Diphenhydramine HCl (Benadryl Inj) 50 mg STK-MED ONCE .ROUTE ; Start 10/29/17 at 09:40; Stop 10/29/17 at 09:41; Status DC Fentanyl Citrate (fentaNYL INJ) 100 mcg STK-MED ONCE .ROUTE ; Start 10/29/17 at 10:07; Stop 10/29/17 at 10:08; Status DC Acetaminophen (Tylenol) 650 mg Q4H PRN PO PAIN SCALE 1 TO 3; Start 10/29/17 at 11:00 Bacitracin (Bacitracin Oint Packet) 0.9 gm UNSCH PRN TOP SEE LABEL COMMENTS; Start 10/29/17 at 11:00 Sodium Chloride (NS Flush) 2 ml BID IV FLUSH ; Start 10/29/17 at 21:00 Sodium Chloride (NS Flush) 2 ml UNSCH PRN IV FLUSH FLUSH AFTER USING IV ACCESS ; Start 10/29/17 at 11:00 Oxycodone/ Acetaminophen (Percocet 5-325 Mg) 1 tab Q4H PRN PO PAIN SCALE 3 TO 10; Start 10/29/17 at 12:00; Stop 10/29/17 at 12:00; Status DC Oxycodone/ Acetaminophen (Percocet 5-325 Mg) 1 tab Q4H PRN PO PAIN SCALE 4 TO 10; Start 10/29/17 at 12:00 Miscellaneous Information ALL NURSING DEPARTME... UNSCH PRN .XX SEE LABEL COMMENTS; Start 10/29/17 at 12:30; Stop 10/30/17 at 12:29 Albuterol/ Ipratropium (Duoneb Neb) 1 ampule QID NEB NEB ; Start 10/29/17 at 16 :00 A/P Assessment and Plan 1. Third-degree AV block EKG shows third-degree AV block, personally reviewed Cardiology consulted, appreciate recommendations Anticipate pacemaker placement tomorrow Telemetry SP PPM WITH DR JACKIE WRAY PTX 2. Hypertension/hyperlipidemia Continue home medications 3. CAD/PVD Holding home Plavix 4. Hypokalemia Status post by mouth supplementation Follow-up BMP Discharge Planning AM CHEST XRAY PENDING PULMONARY AND CARDIAC CLEARANCE Donnell Mirza DO Oct 29, 2017 13:21
[2017-10-29] MEDS ORDERED: RESP: ALBUTEROL 2.5 MG/IPRATROPIUM 0.5 MG NEB (PRN) NEB (13:30)
[2017-10-29] MEDS: PRAZOSIN HCL 2 MG CAP PO SCH ×2 (13:36→22:02)
[2017-10-29] MEDS: RESP: ALBUTEROL 2.5 MG/IPRATROPIUM 0.5 MG NEB (SCH) NEB ×3 (14:12→19:43)
[2017-10-29 14:29] LABS: BICARBONATE 22.8 MEQ/L (21.0-32.0); CALCIUM 8.2 MG/DL (8.5-10.1); CREATININE 1.18 MG/DL (0.60-1.30)
[2017-10-29] MEDS: oxyCODONE/ACETAMINOPHEN 5 MG/325 MG TAB PO PRN ×3 (15:30→22:57)
--- NOTE | 2017-10-29 16:01 | RADRPT ---
EXAM DATE/TIME: 10/29/2017 14:09 [facility] COMPARISON: CHEST EXPIRATION ONLY, October 29, 2017, 12:42. INDICATIONS : Evaluate left pneumothorax MEDICAL HISTORY : Cardiovascular disease. Hypertension SURGICAL HISTORY : None. ENCOUNTER: Subsequent ACUITY: 2 days PAIN SCORE: 0/10 LOCATION: chest FINDINGS: Portable upright expiratory view the chest demonstrates no pneumothorax. There is stable pleural base d opacity on the left. Otherwise, stable examination. CONCLUSION: 1. Stable chest x-ray without a pneumothorax identified. 2. Stable left pleural-based opacity. Shankar Velasquez MD on October 29, 2017 at 15:58 Board Certified Radiologist. This report was verified electronically.
--- NOTE | 2017-10-29 18:33 | RADRPT ---
EXAM DATE/TIME: 10/29/2017 18:03 [facility] COMPARISON: CHEST EXPIRATION ONLY, October 29, 2017, 14:09. INDICATIONS : Shortness of breath and cardiomegaly. Please evaluate for possible pneumothorax MEDICAL HISTORY : Cardiovascular disease. Hypertension SURGICAL HISTORY : None. ENCOUNTER: Subsequent ACUITY: 2 days PAIN SCORE: 0/10 LOCATION: chest FINDINGS: A single AP expiratory view the chest was obtained and again demonstrates a left subclavian AV sequen tial transvenous pacer in place. There is mild cardiomegaly with mild hazy opacity of the lung bases. There is no focal consolidation or effusion. There is no pneumothorax. The patient's head is flexed obscuring the medial lung apices. CONCLUSION: 1. No visualized pneumothorax. The study is suboptimal due to head flexion. 2. Midinspiratory study with hazy opacity at the right lung base. Ulises Kirk MD on October 29, 2017 at 18:28 Board Certified Radiologist. This report was verified electronically.
--- NOTE | 2017-10-29 20:23 | MB ---
cc: Juan Mcnamara MD DATE: 10/29/2017 REASON FOR CONSULTATION: Pneumothorax. HISTORY OF PRESENT ILLNESS: This is a 67-year-old white male with a history of hypertension, hyperlipidemia, coronary artery disease and peripheral vascular disease, who was admitted through the emergency room for dizziness and dyspnea. The patient was found to have a third-degree AV block and cardiac evaluation was performed and he was then scheduled for a permanent pacemaker placement. The patient was then taken for a pacemaker placement earlier today and apparently had some access issues, but following the procedure a chest x-ray showed evidence of a loculated left pneumothorax. The patient has been placed on oxygen at 3 liters and interventional radiology attempted to put in a chest catheter, but was not successful. Followup chest x-ray again shows a small left apical pneumothorax. PAST MEDICAL HISTORY: Past history of includes history of coronary artery disease, history of peripheral vascular disease, history of hypertension, and history of asthma. PAST SURGICAL HISTORY: Surgery include cardiac catheterization and stenting, history of femoral popliteal bypass on the left and appendectomy. ALLERGIES: IODINE, POTASSIUM IODIDE, STATINS, TRAMADOL. FAMILY HISTORY: Significant for heart disease in his father. HABITS: The patient smoked 1 pack per day for over 30 years and quit more than a year ago. Occasional alcohol use. MEDICATION LIST: 1. Valsartan 320/25 mg daily. 2. Rosuvastatin 5 mg daily. 3. Ranitidine 150 mg b.i.d. 4. Prazosin 2 mg b.i.d. 5. ____ ophthalmic eyedrops. 6. Protonix 20 mg a day. 7. Leflunomide 20 mg daily. 8. Flonase nasal spray 2 sprays in each nostril. 9. Xolair injection 150 mg subcutaneous every other week. 10. Trazodone 100 mg at bedtime. 11. Amlodipine 5 mg a day. 12. Tadalafil 5 mg daily. REVIEW OF SYSTEMS: The patient is somewhat drowsy, but denies any shortness of breath. He has some chest tightness. He has abdominal discomfort. Denies nausea or vomiting. He has no leg or calf muscle pains. He has no depression or anxiety. PHYSICAL EXAMINATION: GENERAL: This elderly, obese man is in the bed, but in no distress. Mild pallor. No cyanosis or clubbing. VITAL SIGNS: Blood pressure 128/60, pulse is 58, respirations are 16, temperature 98.2. HEENT: Head is normocephalic. Pupils are reactive and equal. Tongue moist. Throat was clear. Nasal mucosa injected. NECK: Supple, no bruits or thyroid enlargement or lymphadenopathy. CHEST: Distant breath sounds on the left upper chest with occasional wheezes anteriorly. HEART: The heart sounds are regular, S1 and S2 with no murmur. ABDOMEN: Soft, protuberant without mass. No organomegaly. EXTREMITIES: No lesions. Minimal edema. Normal reflexes. NEUROLOGIC: There are no gross motor deficits. Cranial nerves are grossly intact. SKIN: No lesions. IMPRESSION: 1. Left pneumothorax. 2. Status post permanent pacemaker placement. 3. Hypertension. 4. Hyperlipidemia. 5. Third degree atrioventricular block. 6. Hypokalemia. PLAN: The patient will have a followup chest x-ray done in 4 hours. Nebulized DuoNeb solution added t.i.d. p.r.n. O2 2 liters nasal cannula to maintain saturations over 92. Incentive spirometry added every 2 hours and a repeat chest x-ray in a.m. with CBC and basic metabolic profile. If the pneumothorax increases in size, consideration will be given for chest tube placement. Thank you Dr. Gu for this consultation. Juan Mcnamara MD [facility] , 07:02 PM , 08:21 PM
[2017-10-29] MEDS ORDERED: FLUTICASONE PROPIONATE 50 MCG/ACT 16 GM NASAL SPRAY EACH NARE SCH (21:00)
[2017-10-29] MEDS ORDERED: SODIUM CHLORIDE 0.9% FLUSH 10 ML FLUSH IV FLUSH SCH (21:00)
[2017-10-29] MEDS ORDERED: FAMOTIDINE 20 MG TAB PO SCH (21:00)
--- NOTE | 2017-10-29 21:34 | EKG ---
Date Performed: 10/28/2017 Time Performed: 18:13:19 PTAGE: 67 years EKG: AV DISSOCIATION WITH JUNCTIONAL RHYTHM MINIMAL ST DEPRESSION Compared to previous tracing, AV dissociation with junctional rhythm has replaced Sinus rhythm Clinical correlation is recommended ABNORMAL RHYTHM ECG PREVIOUS TRACING : 03/03/12 @ 1551 DOCTOR: Edinson Sumner Interpretating Date/Time 10/29/2017 21:33:08
[2017-10-29] MEDS: traZODone HCL 100 MG TAB PO SCH (22:02)
[2017-10-30] VITALS (13 sets, daily range): BP systolic 127; BP diastolic 58; PULSE 58–97; RESP 18; TEMP 97.6–97.9; O2SAT 95–97
[2017-10-30] MEDS: RESP: ALBUTEROL 2.5 MG/IPRATROPIUM 0.5 MG NEB (SCH) NEB ×4 (07:11→11:02)
[2017-10-30] MEDS: oxyCODONE/ACETAMINOPHEN 5 MG/325 MG TAB PO PRN (07:51)
[2017-10-30] MEDS ORDERED: LEFLUNOMIDE 20 MG PO SCH (09:00)
[2017-10-30] MEDS ORDERED: OLOPATADINE OPTH EACH EYE SCH (09:00)
[2017-10-30] MEDS ORDERED: OXYC1TAB63 PO (09:12)
[2017-10-30] MEDS ORDERED: Bacitracin Oint Packet TOPICAL (09:12)
--- NOTE | 2017-10-30 09:22 | HHI.PR ---
Subjective Remarks Pt feeling well. Ready to go home. Denies any Chest pains, SOB, nausea or vomiting. States that the "sling" doesn't stay so he doesn't want to use it. Pt about to go to ay when I saw him Objective Vitals Vital Signs Date Time Temp Pulse Resp B/P (MAP) Pulse Ox O2 Delivery O2 Flow Rate FiO2 10/30/17 06:59 18 10/30/17 06:00 60 10/30/17 05:00 66 10/30/17 04:00 60 10/30/17 03:00 59 10/30/17 03:00 97.9 63 18 127/58 (81) 97 10/30/17 02:00 58 10/30/17 01:00 58 10/30/17 00:00 64 10/29/17 23:00 97.6 69 18 143/67 (92) 96 10/29/17 23:00 78 10/29/17 22:00 64 10/29/17 21:00 68 10/29/17 20:00 74 10/29/17 19:00 97.9 71 18 128/58 (81) 97 10/29/17 19:00 64 10/29/17 18:00 67 10/29/17 17:00 73 10/29/17 16:00 67 10/29/17 15:00 89 10/29/17 15:00 98.2 68 20 152/74 (100) 96 10/29/17 15:00 98.2 68 20 139/63 (88) 96 10/29/17 14:12 99 Nasal Cannula 2.00 10/29/17 14:00 68 10/29/17 14:00 98.2 68 20 134/63 (86) 98 10/29/17 13:12 89 10/29/17 13:12 98.2 89 20 154/74 (100) 96 10/29/17 13:12 98.2 79 20 152/74 (100) 96 10/29/17 12:45 70 16 125/61 (82) 98 Nasal Cannula 2 10/29/17 12:30 68 16 131/61 (84) 98 Nasal Cannula 2 10/29/17 12:15 68 16 136/63 (87) 98 Nasal Cannula 2 10/29/17 12:00 70 16 137/64 (88) 98 Nasal Cannula 2 10/29/17 11:58 98.4 70 16 136/63 (87) 99 Nasal Cannula 2 I/O 10/29/17 10/29/17 10/29/17 10/30/17 10/30/17 10/30/17 07:00 15:00 23:00 07:00 15:00 23:00 Intake Total 0 ml 20 ml 960 ml 640 ml 985 ml Output Total 1300 ml 1800 ml Balance 0 ml 20 ml -340 ml -1160 ml 985 ml Intake Oral 0 ml 960 ml 640 ml IV Total 20 ml 985 ml Output Urine Total 1300 ml 1800 ml # Voids 2 # Bowel Movements 2 2 0 Result Diagram: 10/28/17 1840 10/29/17 1344 Imaging Last Impressions Chest X-Ray 10/29/17 1800 Signed Impressions: Service Date/Time: October 18:03 - CONCLUSION: 1. No visualized pneumothorax. The study is suboptimal due to head flexion. 2. Midinspiratory study with hazy opacity at the right lung base. Ulises Kirk MD Objective Remarks GENERAL: Awake alert and oriented 3 talkative and cooperative SKIN: dressing over incision/PPM d/d/i CARDIOVASCULAR: Regular rate and rhythm. RESPIRATORY: No accessory muscle use. Clear to auscultation. Breath sounds equal bilaterally. GASTROINTESTINAL: Abdomen soft, non-tender, nondistended. MUSCULOSKELETAL: Extremities without edema. No obvious deformities. NEUROLOGICAL: Awake and alert. Normal speech. Procedures DATE OF OPERATION: 10/29/2017 Insertion of dual-chamber rate responsive pacemaker via the left subclavian vein. A/P Assessment and Plan medical management update 10/30/17: Pt doing well. Would like to be discharged today. Repeat chest x-ray ordered. Pt is asymptomatic. Awaiting final recs from cards. Pt has been instructed to f/u on recs regarding arm restrictions and to use sling but pt states that the sling doesn't stay and he will not use it. I asked him to be very careful not to use the arm per cards recs. Tentative d/c orders in place pending clearance from cards. 1. Third-degree AV block EKG shows third-degree AV block, s/p Insertion of dual-chamber rate responsive pacemaker via the left subclavian vein. Procedure complicated w small Pneumothorax Cardiology has cleared pt to be discharged Pulm evaluated the pt, repeat chest x-ray today shows no sign pneumothorax. pulm cleared pt and would for him to f/u w him as an outpatient. 2. Hypertension/hyperlipidemia Continue home medications 3. CAD/PVD resume plavix tomorrow morning per cards 4. Hypokalemia resolved. Discharge Planning Discharge home tody condition: stable activity: restrictions per cards recs post op heart healthy diet scripts in chart. Terrie Mena MD Oct 30, 2017 09:22
--- NOTE | 2017-10-30 10:32 | RADRPT ---
EXAM DATE/TIME: 10/30/2017 08:54 [facility] COMPARISON: CHEST SINGLE AP, October 29, 2017, 18:03. CHEST PA & LAT, October 28, 2017, 19:02. INDICATIONS : Evaluate for pneumothorax. MEDICAL HISTORY : Cardiovascular disease. Hypertension SURGICAL HISTORY : Pacemaker. Chest tube. ENCOUNTER: Subsequent ACUITY: 3 days PAIN SCORE: 0/10 LOCATION: Bilateral chest FINDINGS: Poor inspiratory effort. Diffuse interstitial prominence exaggerated by low lung volumes. No signific ant pneumothorax. There is a dual-lead pacemaker in place. Improved aeration in the left lower lobe. No significant focal parenchymal opacity. Cardiac coil was enlarged. Remainder of the exam is unchang ed. CONCLUSION: 1. No significant pneumothorax. 2. Port inspiratory effort which accentuates the interstitial markings. 3. Improved aeration in the left lower lobe. 4. Cardiomegaly. Marcin Bell MD on October 30, 2017 at 10:27 Board Certified Radiologist. This report was verified electronically.
--- NOTE | 2017-10-30 10:44 | PD.CARD.PN ---
Subjective Subjective Remarks No complaints Objective Medications Current Medications Medications (Trade) Dose Ordered Sig/Sonam Route Start Time Stop Time Status Last Admin (NS Flush) 2 ml UNSCH PRN IVF 10/28/17 18:45 (NS Flush) 2 ml UNSCH PRN IV FLUSH 10/28/17 19:00 (NS Flush) 2 ml BID IV FLUSH 10/28/17 21:00 10/29/17 21:00 (Narcan Inj) 0.4 mg UNSCH PRN IV PUSH 10/28/17 19:00 Sodium Chloride 1,000 ml @ 30 mls/hr Q24H IV 10/28/17 19:11 Cefazolin/Sodium Chloride 100 ml @ 100 mls/hr [employer] IV 10/28/17 19:15 10/31/17 19:14 Vancomycin HCl 1000 mg/Sodium Chloride 250 ml @ 250 mls/hr [employer] IV 10/28/17 19:15 11/01/17 19:14 (Bactroban Nasal 2% Oint) 1 applic [employer] NASAL 10/28/17 19:15 11/01/17 19:14 (Chlorhexidine 2% Cloth) 3 pack [employer] TOP 10/28/17 19:15 11/01/17 19:14 (Norvasc) 5 mg DAILY PO 10/29/17 09:00 10/29/17 13:36 (Protonix) 20 mg DAILY PO 10/29/17 09:00 10/29/17 13:35 (Minipress) 2 mg BID PO 10/28/17 21:00 10/29/17 22:02 (Lipitor) 10 mg DAILY PO 10/29/17 09:00 (Desyrel) 100 mg HS PO 10/28/17 21:00 10/29/17 22:02 (Hydrodiuril) 25 mg DAILY PO 10/29/17 09:00 10/29/17 13:35 Sodium Chloride 1,000 ml @ 100 mls/hr Q10H IV 10/28/17 20:45 10/29/17 16:45 (Diovan) 320 mg DAILY PO 10/29/17 09:00 10/29/17 13:35 (Tylenol) 650 mg Q4H PRN PO 10/29/17 11:00 (Bacitracin Oint Packet) 0.9 gm UNSCH PRN TOP 10/29/17 11:00 (NS Flush) 2 ml BID IV FLUSH 10/29/17 21:00 (NS Flush) 2 ml UNSCH PRN IV FLUSH 10/29/17 11:00 (Percocet 5-325 Mg) 1 tab Q4H PRN PO 10/29/17 12:00 10/30/17 07:51 Miscellaneous Information ALL NURSING DEPARTME... UNSCH PRN .XX 10/29/17 12:30 10/30/17 12:29 (Duoneb Neb) 1 ampule QID NEB NEB 10/29/17 16:00 10/29/17 19:43 (Duoneb Neb) 1 ampule Q6HR WHILE AWAKE NEB NEB 10/29/17 14:00 10/30/17 07:11 (Duoneb Neb) 1 ampule Q2HR NEB PRN NEB 10/29/17 13:30 (Flonase Angel Spr) 1 spray BID EACH NARE 10/29/17 21:00 10/29/17 22:03 Patient Own Medication PT OWN MED: (Leflunomide 20 MG) DAILY PO 10/30/17 09:00 Future Hold Patient Own Medication PT OWN MED: (Olopatadine Opth 0... DAILY EACH EYE 10/30/17 09:00 Future Hold (Pepcid) 20 mg BID PO 10/29/17 21:00 10/29/17 22:02 Vital Signs / I&O Vital Signs Date Time Temp Pulse Resp B/P (MAP) Pulse Ox O2 Delivery O2 Flow Rate FiO2 10/30/17 06:59 18 10/30/17 06:00 60 10/30/17 05:00 66 10/30/17 04:00 60 10/30/17 03:00 59 10/30/17 03:00 97.9 63 18 127/58 (81) 97 10/30/17 02:00 58 10/30/17 01:00 58 10/30/17 00:00 64 10/29/17 23:00 97.6 69 18 143/67 (92) 96 10/29/17 23:00 78 10/29/17 22:00 64 10/29/17 21:00 68 10/29/17 20:00 74 10/29/17 19:00 97.9 71 18 128/58 (81) 97 10/29/17 19:00 64 10/29/17 18:00 67 10/29/17 17:00 73 10/29/17 16:00 67 10/29/17 15:00 89 10/29/17 15:00 98.2 68 20 152/74 (100) 96 10/29/17 15:00 98.2 68 20 139/63 (88) 96 10/29/17 14:12 99 Nasal Cannula 2.00 10/29/17 14:00 68 10/29/17 14:00 98.2 68 20 134/63 (86) 98 10/29/17 13:12 89 10/29/17 13:12 98.2 89 20 154/74 (100) 96 10/29/17 13:12 98.2 79 20 152/74 (100) 96 10/29/17 12:45 70 16 125/61 (82) 98 Nasal Cannula 2 10/29/17 12:30 68 16 131/61 (84) 98 Nasal Cannula 2 10/29/17 12:15 68 16 136/63 (87) 98 Nasal Cannula 2 10/29/17 12:00 70 16 137/64 (88) 98 Nasal Cannula 2 10/29/17 11:58 98.4 70 16 136/63 (87) 99 Nasal Cannula 2 I/O 10/29/17 10/29/17 10/29/17 10/30/17 10/30/17 10/30/17 07:00 15:00 23:00 07:00 15:00 23:00 Intake Total 0 ml 20 ml 960 ml 640 ml 985 ml Output Total 1300 ml 1800 ml Balance 0 ml 20 ml -340 ml -1160 ml 985 ml Intake Oral 0 ml 960 ml 640 ml IV Total 20 ml 985 ml Output Urine Total 1300 ml 1800 ml # Voids 2 # Bowel Movements 2 2 0 Physical Exam GENERAL: Well developed, well nourished. No acute distress. HEENT: Jugular venous pressure is normal. CHEST: Lungs clear to auscultation bilaterally. Unlabored respiratory effort. CARDIAC: Regular rate and rhythm without S3, S4, or murmur. ABDOMEN: Soft, nontender, no hepatosplenomegaly. Bowel sounds present. EXTREMITIES: No clubbing, cyanosis, or edema. Pacemaker wound looks fine Laboratory Laboratory Tests Test 10/29/17 13:44 Blood Urea Nitrogen 19 MG/DL Creatinine 1.18 MG/DL Random Glucose 123 MG/DL Calcium Level 8.2 MG/DL Sodium Level 142 MEQ/L Potassium Level 3.7 MEQ/L Chloride Level 111 MEQ/L Carbon Dioxide Level 22.8 MEQ/L Anion Gap 8 MEQ/L Estimat Glomerular Filtration Rate 62 ML/MIN Imaging Last 48 hours Impressions Chest X-Ray 10/29/17 1800 Signed Impressions: Service Date/Time: October 18:03 - CONCLUSION: 1. No visualized pneumothorax. The study is suboptimal due to head flexion. 2. Midinspiratory study with hazy opacity at the right lung base. Ulises Kirk MD Chest X-Ray 10/29/17 1400 Signed Impressions: Service Date/Time: October 14:09 - CONCLUSION: 1. Stable chest x-ray without a pneumothorax identified. 2. Stable left pleural-based opacity. Shankar Velasquez MD Chest X-Ray 10/29/17 0000 Signed Impressions: Service Date/Time: October 12:42 - CONCLUSION: 1. No pneumothorax is visualized. 2. Chronic left pleural thickening is stable. Shankar Velasquez MD Chest X-Ray 10/28/17 1836 Signed Impressions: Service Date/Time: Saturday, October 28, 2017 19:02 - CONCLUSION: 1. Extensive pleural and parenchymal scarring on the left side. No acute findings. London Brito MD Last 24 hours Impressions Chest X-Ray 10/29/17 1800 Signed Impressions: Service Date/Time: October 18:03 - CONCLUSION: 1. No visualized pneumothorax. The study is suboptimal due to head flexion. 2. Midinspiratory study with hazy opacity at the right lung base. Ulises Kirk MD Chest X-Ray 10/29/17 1400 Signed Impressions: Service Date/Time: October 14:09 - CONCLUSION: 1. Stable chest x-ray without a pneumothorax identified. 2. Stable left pleural-based opacity. Shankar Velasquez MD Assessment and Plan Problem List: (1) Third degree heart block ICD Codes: I44.2 - Atrioventricular block, complete Status: Acute (2) Abnormal chest xray ICD Codes: R93.8 - Abnormal findings on diagnostic imaging of other specified body structures Plan: Subsequent clinical course suggests no significant pneumothorax (3) Pacemaker ICD Codes: Z95.0 - Presence of cardiac pacemaker Plan: Normal function Assessment and Plan Once pulmonary is satisfied he is stable then OK to DC home Anthony Gu MD Oct 30, 2017 10:44
--- NOTE | 2017-10-30 11:19 | HHI.PR ---
Subjective Remarks He is feeling OK. Off O2 sat 95. CXR today showed no pneumothorax. Objective Vital Signs Date Time Temp Pulse Resp B/P (MAP) Pulse Ox O2 Delivery O2 Flow Rate FiO2 10/30/17 06:59 18 10/30/17 06:00 60 10/30/17 05:00 66 10/30/17 04:00 60 10/30/17 03:00 59 10/30/17 03:00 97.9 63 18 127/58 (81) 97 10/30/17 02:00 58 10/30/17 01:00 58 10/30/17 00:00 64 10/29/17 23:00 97.6 69 18 143/67 (92) 96 10/29/17 23:00 78 10/29/17 22:00 64 10/29/17 21:00 68 10/29/17 20:00 74 10/29/17 19:00 97.9 71 18 128/58 (81) 97 10/29/17 19:00 64 10/29/17 18:00 67 10/29/17 17:00 73 10/29/17 16:00 67 10/29/17 15:00 89 10/29/17 15:00 98.2 68 20 152/74 (100) 96 10/29/17 15:00 98.2 68 20 139/63 (88) 96 10/29/17 14:12 99 Nasal Cannula 2.00 10/29/17 14:00 68 10/29/17 14:00 98.2 68 20 134/63 (86) 98 10/29/17 13:12 89 10/29/17 13:12 98.2 89 20 154/74 (100) 96 10/29/17 13:12 98.2 79 20 152/74 (100) 96 10/29/17 12:45 70 16 125/61 (82) 98 Nasal Cannula 2 10/29/17 12:30 68 16 131/61 (84) 98 Nasal Cannula 2 10/29/17 12:15 68 16 136/63 (87) 98 Nasal Cannula 2 10/29/17 12:00 70 16 137/64 (88) 98 Nasal Cannula 2 10/29/17 11:58 98.4 70 16 136/63 (87) 99 Nasal Cannula 2 I/O 4/12/18 410/29/17 10/30/17 10/30/17 10/30/17 07:00 15:00 23:00 07:00 15:00 23:00 Intake Total 0 ml 20 ml 960 ml 640 ml 985 ml Output Total 1300 ml 1800 ml Balance 0 ml 20 ml -340 ml -1160 ml 985 ml Intake Oral 0 ml 960 ml 640 ml IV Total 20 ml 985 ml Output Urine Total 1300 ml 1800 ml # Voids 2 # Bowel Movements 2 2 0 Result Diagram: 10/28/17 1840 10/29/17 1344 Objective Remarks GENERAL: This elderly, obese man is in the bed, but in no distress. Mild pallor. No cyanosis or clubbing. HEENT: Head is normocephalic. Pupils are reactive and equal. Tongue moist. Throat was clear. Nasal mucosa clear NECK: Supple, no bruits or thyroid enlargement or lymphadenopathy. CHEST: Distant breath sounds on the left upper chest with occasional wheezes anteriorly. HEART: The heart sounds are regular, S1 and S2 with no murmur. ABDOMEN: Soft, protuberant without mass. No organomegaly. EXTREMITIES: No lesions. Minimal edema. Normal reflexes. NEUROLOGIC: There are no gross motor deficits. Cranial nerves are grossly intact. SKIN: No lesions. Assessment and Plan Assessment and Plan IMPRESSION: 1. Left pneumothorax. 2. Status post permanent pacemaker placement. 3. Hypertension. 4. Hyperlipidemia. 5. Third degree atrioventricular block. 6. Hypokalemia. Plan : 1. Will d/c O2 . 2. IS q3h bedside. 3. Ventolin HFA , 2 puffs tid prn. 4. Lasix 20 mg daily 5. Home per Dr Gu . will see as OP in 2 weeks Thank you Juan Mcnamara MD Oct 30, 2017 11:19
[2017-10-31] MEDS ORDERED: CLOPIDOGREL 75 MG TAB PO SCH (09:00)
== END 2017-10-30 12:38 | disposition home or self-care (01) | DRG 243 ==
LOC: NEPE 17:58 → NEDA 18:52 → NEDH 22:57 → HCPC 10-29 01:46
PROVIDERS: ADMIT Hospitalist; ATTEND Hospitalist
PROC: 02H63JZ Insertion of Pacemaker Lead into Right Atrium, Percutaneous Approach (ICD-10-PCS; 2017-10-29)
PROC: 02HK3JZ Insertion of Pacemaker Lead into Right Ventricle, Percutaneous Approach (ICD-10-PCS; 2017-10-29)
PROC: 0JH606Z Insertion of Pacemaker, Dual Chamber into Chest Subcutaneous Tissue and Fascia, Open Approach (ICD-10-PCS; principal; 2017-10-29 09:00)
DX: I44.2 Atrioventricular block, complete (principal); J95.811 Postprocedural pneumothorax; J44.9 Chronic obstructive pulmonary disease, unspecified; I10 Essential (primary) hypertension; E78.5 Hyperlipidemia, unspecified; I25.10 Atherosclerotic heart disease of native coronary artery without angina pectoris; K21.9 Gastro-esophageal reflux disease without esophagitis; G47.30 Sleep apnea, unspecified; I73.9 Peripheral vascular disease, unspecified; E87.6 Hypokalemia; M19.90 Unspecified osteoarthritis, unspecified site; Y83.8 Other surgical procedures as the cause of abnormal reaction of the patient, or of later complication, without mention of misadventure at the time of the procedure; Z82.49 Family history of ischemic heart disease and other diseases of the circulatory system; Z87.891 Personal history of nicotine dependence; Z95.5 Presence of coronary angioplasty implant and graft
CPT/HCPCS: 33208; 71045; 71046; 80048; 83735; 85025; 85610; 85730; 93005; 94150; 94640; 94664; 99285; C1729; C1769; C1779; C1785; J0690; J1100; J1200; J2250; J2405; J3010; J3370; J7030; J7050